=== PATIENT | male | born 1950 | race Caucasian/White ===

== ENCOUNTER → 2016-11-02 | Outpatient (CLI) | payer BC ==
[~2016-11-02] MED LIST: ALBINS/ INH; APIX1TAB3 PO; ASPI81TA28 PO; ATOR-24 PO; ATRINS NEB; CEPH500C PO; CLOP1TAB15 PO; DILT-115 PO; FAMO20TA11 PO; FOLI1TAB7 PO; FRS/40 PO; HYDR-5688 PO; IPRA0.03; KCLI20/100 PO; LEVA45AE PO; LISI-729 PO; LNX125 PO; METO50TA16 PO; NICO21DI31 TOP; RXC5 PO; SPRIN/30 INH
[2016-11-02 17:46] LABS: BLOOD UREA NITROGEN 17 mg/dl (7-18); BUN/CREATININE RATIO 12.7 (10-20); CALCIUM 9.2 mg/dl (8.5-10.1); CARBON DIOXIDE 29 mmol/L (21-32); CHLORIDE 104 mmol/L (98-107); GLUCOSE 96 mg/dl (70-99); POTASSIUM 4.3 mmol/L (3.5-5.1); SODIUM 138 mmol/L (136-145)
[2016-11-02 17:52] LABS: INR 1.1 (0.9-1.1); PARTIAL THROMBOPLASTIN RATIO 1.1; PROTHROMBIN TIME (PATIENT) 11.9 SECONDS (9.0-12.0)
[2016-11-02 17:53] LABS: HEMATOCRIT 45.5 % (42-52); MEAN CELL VOLUME 92.5 fL (80-100); MEAN CORPUSCULAR HEMOGLOBIN 29.9 pg (25-34); MEAN CORPUSCULAR HGB CONC 32.3 g/dl (32-36); MEAN PLATELET VOLUME 10.6 fL (7.4-10.4); PLATELET COUNT 361 K/uL (130-400); RED BLOOD COUNT 4.92 M/uL (4.7-6.1); WHITE BLOOD COUNT 7.27 K/uL (4.8-10.8)
== END | disposition home or self-care (01) ==
LOC: C.LABPBG 12:30
PROVIDERS: ATTEND Internal Medicine Clinical Cardiac Electrophysiology
DX: Z01.818 Encounter for other preprocedural examination (principal)

== ENCOUNTER 2016-11-19 12:19 | Emergency (ER) | payer BC ==
[~2016-11-19] VITALS: Ht 185.4 cm; Wt 86.8 kg
[2016-11-19 12:22] VITALS: TEMP 36.7; Ht 185.4 cm; Wt 86.8 kg
[2016-11-19] MEDS ORDERED: HYDROCODONE/ACETAMOPHEN 5/325MG TAB PO STA (13:26)
[2016-11-19] MEDS ORDERED: CEPH500C PO (13:34)
[2016-11-19] MEDS ORDERED: CLOP1TAB15 PO (13:34)
[2016-11-19] MEDS ORDERED: FRS/40 PO (13:34)
[2016-11-19] MEDS ORDERED: LEVA45AE PO (13:34)
[2016-11-19] MEDS ORDERED: KCLI20/100 PO (13:34)
[2016-11-19] MEDS ORDERED: ASPI81TA28 PO (13:34)
[2016-11-19] MEDS ORDERED: DILT-115 PO (13:34)
[2016-11-19] MEDS ORDERED: ALBINS/ INH (13:34)
[2016-11-19] MEDS ORDERED: ATOR-24 PO (13:34)
[2016-11-19] MEDS ORDERED: LISI-729 PO (13:34)
[2016-11-19] MEDS ORDERED: FAMO20TA11 PO (13:34)
[2016-11-19] MEDS ORDERED: HYDR-5688 PO (13:34)
[2016-11-19] MEDS ORDERED: LNX125 PO (13:34)
[2016-11-19] MEDS ORDERED: ATRINS NEB (13:34)
[2016-11-19] MEDS ORDERED: IPRA0.03 (13:34)
[2016-11-19] MEDS ORDERED: SPRIN/30 INH (13:34)
[2016-11-19] MEDS ORDERED: NICO21DI31 TOP (13:34)
[2016-11-19] MEDS ORDERED: METO50TA16 PO (13:34)
[2016-11-19] MEDS ORDERED: FOLI1TAB7 PO (13:34)
[2016-11-19] MEDS ORDERED: APIX1TAB3 PO (13:34)
--- NOTE | 2016-11-19 13:36 | EMERGENCY ROOM VISIT NOTE ---
History First contact with patient: 12:28 Chief Complaint: FINGER PAIN Stated Complaint: 2 BROKEN FINGERS W/STITCHES, BLEEDING History of Present Illness The patient is a 66 year old male who presents to the Emergency Room with complaints of a laceration which needs the dressing changed. The patient states that he sustained a laceration to his left third and fourth digits 2 days ago. He was seen at [place] emergency department and had sutures placed. There were fractures of the third and fourth fingers. He has been wearing a brace and has been to [place] twice for dressing changes because the dressing has become saturated with blood. He is supposed to see the fracture clinic this week for follow-up. He reports he is scheduled to have a defibrillator placed in [address] Garza and is unsure if he will be able to because of this injury. He takes Eliquis. He denies any dizziness or lightheadedness. Review of Systems A complete 10 point review of systems was reviewed with the patient with pertinent positives and negatives as per history of present illness. All else were negative. Social History Smoking Status: Never Smoker Current/Historical Medications Scheduled Apixaban (Eliquis), 5 MG PO BID Aspirin (Aspirin Ec), 81 MG PO DAILY Atorvastatin (Lipitor), 40 MG PO HS Cephalexin Monohydrate (Keflex), 500 MG PO QID Clopidogrel (Plavix), 75 MG PO DAILY Digoxin (Digoxin), 0.125 MCG PO DAILY Diltiazem Hcl Ext Rel (Tiazac), 240 MG PO DAILY Famotidine (Pepcid), 20 MG PO HS Folic Acid (Folvite), 1 MG PO DAILY Furosemide (Lasix), 40 MG PO DAILY Ipratropium [place] (Nasal) (Ipratropium [place]), 2 SPRAYS NA TID Lisinopril (Zestril), 2.5 MG PO DAILY Metoprolol Tartrate (Lopressor) (Lopressor), 25 MG PO BID Nicotine (Ra Nicotine), 1 PATCH TOP DAILY Potassium Chloride (Potassium Chloride), 15 ML PO BID Tiotropium [place] (Spiriva Handihaler), 1 CAP INH DAILY Scheduled PRN Albuterol Sulf (Proventil 0.083% 2.5MG/3ML), 2.5 MG INH QID PRN for Wheezing Hydrocodone/Acetaminophen 5MG/325MG ([place] 5MG/325MG), 1 TABLET PO Q6 PRN for Pain Ipratropium [place] (Ipratropium [place]), 1 VIAL NEB QID PRN for Wheezing Levalbuterol Tartrate (Levalbuterol Tartrate Hfa), 1 PUFF PO Q6 PRN for Wheezing Physical Exam Vital Signs Date Time Temp Pulse Resp B/P (MAP) Pulse Ox O2 Delivery O2 Flow Rate FiO2 11/19/16 13:43 105 128/96 94 11/19/16 12:22 36.7 77 20 110/56 95 Room Air Physical Exam VITALS: Vitals are noted on the nurse's note and reviewed by myself. Vital signs stable. GENERAL: This is a 66-year-old male, in no acute distress, nondiaphoretic, well- developed well-nourished. HEART: Regular rate and rhythm without murmurs gallops or rubs. LUNGS: Clear to auscultation bilaterally without wheezes, rales or rhonchi. EXTREMITIES: There are sutured lacerations to the left third and fourth digits with some devascularized tissue and a small amount of oozing blood from the left third digit. There is no evidence of infection. Full range of motion of the hand and all fingers. NEURO: Patient was alert and oriented to person place and time. Normal sensation to light and sharp touch. Medical Decision & Procedures Medications Administered Medications (Trade) Dose Ordered Sig/Ashlyn Route Start Time Stop Time Status Last Admin Dose Admin Acetaminophen/ Hydrocodone Bitart ([place] 5/325 Tab) 1 tab NOW STAT PO 11/19/16 13:26 11/19/16 13:27 DC 11/19/16 13:32 1 TAB Medical Decision The patient was evaluated as above. There is some oozing blood from the wound. There is no evidence of infection. The lacerations were redressed using quick clot gauze. The splint was replaced. Bleeding was controlled. The patient was encouraged to follow-up as scheduled. He was also given Dr. Lizarraga's information for follow-up if he desires. The patient verbalized understanding of my assessment and treatment plan and was discharged home in good condition. Medication Reconcilliation Current Medication List: was personally reviewed by me Blood Pressure Screening Patient's blood pressure: Normal blood pressure Impression Primary Impression: Encounter for wound re-check Departure Information Dispostion Home / Self-Care Condition GOOD Referrals Tevin Dobbs M.D. (PCP) Satya Lizarraga MD Patient Instructions [facility] Additional Instructions Keep the dressing in place for 48 hours or remove if it becomes saturated with blood. Follow-up with Dr. Lizarraga next week. Call for appointment. Call your senior environmental scientist to see if they would like to proceed with the defibrillator placement. Return to the emergency department with any new/concerning symptoms.
[2016-11-19 13:43] VITALS: BP 128/96; PULSE 105; O2SAT 94
[2016-11-22] MEDS ORDERED: RXC5 PO (07:46)
== END 2016-11-19 13:45 | disposition home or self-care (01) ==
LOC: C.EDB 12:20 → C.EDD 13:45
DX: S61.213D Laceration without foreign body of left middle finger without damage to nail, subsequent encounter (principal); S61.215D Laceration without foreign body of left ring finger without damage to nail, subsequent encounter; Z79.02 Long term (current) use of antithrombotics/antiplatelets; Z79.82 Long term (current) use of aspirin; Z79.899 Other long term (current) drug therapy; X58.XXXD Exposure to other specified factors, subsequent encounter

== ENCOUNTER 2016-11-21 11:21 | Observation (INO) | payer BC ==
[~2016-11-21] VITALS: Ht 185.4 cm; Wt 84.2 kg
[~2016-11-21 11:21] MED LIST changes: -RXC5 PO
[2016-11-21 12:19] VITALS: BP 128/95; PULSE 87; TEMP 37.1; O2SAT 95; BMI 25.0
[2016-11-21] MEDS ORDERED: CEFAZOLIN IV 2,000 MG/60 ML D5W IV ONE (12:56)
--- NOTE | 2016-11-21 13:28 | Procedure Note ---
Pre-Mod Sedation Assessment General Date of Moderate Sedation: Nov 21, 2016. Vital Signs: Vital Signs Past 12 Hours Date Time Temp Pulse Resp B/P (MAP) Pulse Ox O2 Delivery O2 Flow Rate FiO2 11/21/16 12:19 37.1 87 18 128/95 (106) 95 Room Air Review Airway Class: III Pre-Sedation Airway Assessment Oral Cavity: WNL Able to Visualize Vocal Cords: No Short Thick Neck: No Hx of Sleep Apnea: Yes Smoking Status: Former Smoker Mallampati Classification: Class III ASA Classification: Class III Procedure Planning Contraindications-for Mod Sed: None Yes Notes The planned sedation has been discussed with the patient and consent obtained. I have identified the patient, determined the appropriateness of sedation and have assessed the patient immediately prior to the procedure. All medicine(s) and interventions are by my order.
--- NOTE | 2016-11-21 13:28 | History & Physical Bridge Note ---
H&P Re-Evaluation Bridge Note: I have examined the patient, reviewed the History & Physical and in the interval since the performance of the History & Physical I have noted the following changes of clinical significance: Patient suffered a fracture and laceration to the left 4th and 5th digits 4 days ago. Mild discomfort at that site. Right sided chest pain has resolved. No changes noted
[2016-11-21] MEDS ORDERED: BUPIVACAINE 0.5 % 5 MG/1 ML MPF 30ML VIAL ONE (13:50)
[2016-11-21] MEDS ORDERED: MIDAZOLAM HCL 5 MG/ML 1 ML VIAL ONE (13:50)
[2016-11-21] MEDS ORDERED: BACITRACIN OINT 0.9 GM PKT ONE (13:50)
[2016-11-21] MEDS ORDERED: FENTANYL CITRATE INJ 50 MCG/1 ML 2 ML VIAL ONE (13:50)
[2016-11-21] MEDS ORDERED: LIDOCAINE HCL 1% 20 ML VIAL ONE (13:50)
[2016-11-21] MEDS ORDERED: BACITRACIN 50000 UNIT VIAL ONE (13:50)
[2016-11-21] MEDS ORDERED: ACETAMINOPHEN 325 MG TAB PO PRN (14:45)
[2016-11-21 14:50] VITALS: BP 120/86; PULSE 79; TEMP 36.8; O2SAT 93; Ht 185.4 cm; Wt 84.2 kg
[2016-11-21] MEDS ORDERED: MoRPHine SULFATE 2 MG/ML CARP IV PRN (15:15)
[2016-11-21] MEDS ORDERED: IV FLUIDS COMPLETED PRN (15:15)
[2016-11-21] MEDS: OXYCODONE HCL IR 5 MG TAB (IMMEDIATE RELEASE) PO PRN ×2 (16:07→20:01)
[2016-11-21 16:34] VITALS: O2SAT 91
--- NOTE | 2016-11-21 16:59 | Procedure Note ---
Procedure Note Date of Service Nov 21, 2016. Procedure Note Procedure performed: Insertion of single-chamber ICD Staff transitions rn care coordinator:Satya Garza MD Indication: Patient is a 66-year-old gentleman with a history of an ischemic cardiomyopathy and a persistently low ejection fraction. Patient has been on optimal medical therapy. He has not suffered a myocardial infarction in the past 4 days nor had any revascularization in the last 90 days. He continues to have symptoms related to congestive heart failure and has an anticipated longevity greater than 1 year. Based on these factors patient was felt to be a good candidate for implantation of an ICD as primary prevention against sudden cardiac The patient was informed of the risks benefits and alternatives to the intended procedure and he wished to proceed. He was taken to the electrophysiology suite in a fasting state. A preoperative antibiotic had been administered. The patient was monitored electrocardiographically throughout today's procedure and conscious sedation was administered per protocol. The left upper pectoral area is prepped and draped in usual sterile fashion. This area was anesthetized using subcutaneous menstruation of a xylocaine solution. An incision was made at this site and carried down to the prepectoralis fascia using sharp dissection. Electrocautery was also employed for dissection as well as for hemostasis. A device pocket was fashioned tissues above the pectoralis muscle. Subsequent to this maneuver the left axillary vein was accessed using modified Seldinger technique. Sheaths were placed over guidewires at this site use salt a passage of the pacing lead to the right ventricular apex under fluoroscopic guidance. This included a right ventricular leads. Adequate sensing and threshold parameters were obtained prior to Active fixation of the lead to the endocardial surface. The proximal portion lead were then sutured the prepectoral fascia using nonabsorbable suture. The device pocket was irrigated with antibiotic solution. The lead was then attached to the device. The device and lead were then placed in the pocket and pocket was closed in 3 layers of absorbable suture. Steri-Strips and sterile dressing were applied. The device was tested prior to the conclusion of the procedure. The patient tolerated procedure well there no immediate complications. Equipment used New pulse generator: Metal Cutter Scyron, model number: [id number] Serial number: [id number] Right ventricular lead: Metal Cutter Scyron, model number: [id number] Serial number: [id number] Measured data Right ventricular lead: R-waves measured 14.4 millivolts, pacing threshold was 0.75 volts at 0.4 milliseconds with a pacing impedance of 646 Ohms Impression: Successful implantation of single-chamber ICD Plan: Patient will be monitored on the marcano overnight, additional doses of antibiotics will be administered. A chest x-ray and reinterrogation of the device we performed in the morning. Should the patient be feeling well in all parameters be adequate, he will be considered for discharge at that time.
[2016-11-21] MEDS ORDERED: ALBUT/IPRATROP 3MG/0.5MG NEB 3 ML VIAL INH PRN (17:00)
[2016-11-21] MEDS ORDERED: LEValbuterol HFA 15GM INHALER INH SCH (17:00)
[2016-11-21] MEDS: ALBUT/IPRATROP 3MG/0.5MG NEB 3 ML VIAL INH SCH (19:02)
[2016-11-21 19:05] VITALS: PULSE 92; O2SAT 92
[2016-11-21 19:38] VITALS: BP 125/74; PULSE 95; TEMP 37; O2SAT 92
[2016-11-21] MEDS: METOPROLOL TARTRATE 25 MG TAB PO SCH (19:59)
[2016-11-21] MEDS ORDERED: FAMOTIDINE 20 MG TAB PO SCH (21:00)
[2016-11-21] MEDS ORDERED: CARVEDILOL 6.25 MG TAB PO SCH (21:00)
[2016-11-21] MEDS: CEFAZOLIN IV 2,000 MG in DEXTROSE 5% 50ML 50 ML IV SCH (21:34)
[2016-11-21 23:55] VITALS: BP 120/83; PULSE 90; TEMP 36.8; O2SAT 95
[2016-11-22] VITALS (7 sets, daily range): BP systolic 102–124; BP diastolic 70–89; PULSE 89–96; TEMP 36.7–36.8; O2SAT 94–97
[2016-11-22] MEDS: OXYCODONE HCL IR 5 MG TAB (IMMEDIATE RELEASE) PO PRN ×2 (00:08→04:42)
[2016-11-22] MEDS: CEFAZOLIN IV 2,000 MG in DEXTROSE 5% 50ML 50 ML IV SCH (06:14)
--- NOTE | 2016-11-22 07:21 | DIAGNOSTIC IMAGING REPORT ---
CHEST 2 VIEWS ROUTINE HISTORY: EXACT TIME ORDERED Evaluate for pneumothorax and lead placement COMPARISON: None. FINDINGS: The heart is normal in size. Linear densities within the base of the left lower lobe. There is also patchy density within the right medial lung base. The upper lung zones remain clear. Trace right pleural effusion. No pneumothorax. Left-sided single lead pacemaker/defibrillator. The lead appears intact. IMPRESSION: 1. Left-sided single lead pacemaker/defibrillator. No pneumothorax. 2. Patchy densities within the right medial lung base and left lung base. This may represent atelectasis or pneumonia. 3. Trace right pleural effusion. Electronically signed by: Kali Chase M.D. 11/22/2016 7:20 AM Dictated Date/Time: 11/22/2016 7:18 AM
[2016-11-22] MEDS: ALBUT/IPRATROP 3MG/0.5MG NEB 3 ML VIAL INH SCH (07:27)
[2016-11-22] MEDS ORDERED: RXC5 PO ×2 (07:46)
--- NOTE | 2016-11-22 07:49 | Discharge Instructions ---
Discharge Instructions Date of Service Nov 22, 2016. Admission Reason for Admission: CHF Discharge Discharge Diagnosis / Problem: ICD implant Discharge Goals Goal(s): Improve disease control, Therapeutic intervention Activity Recommendations Activity Limitations: as noted below Lifting Limitations: none May Resume Sexual Activity: when tolerated Driving or Machine Use: resume 1 day after discharge Keep wound dry and steri-strip intact until f/u appointment. No lifting left arm above shoulder or behind neck for 6 weeks . Instructions / Follow-Up Instructions / Follow-Up f/u in 2 days as scheduled Current Hospital Diet Patient's current hospital diet: AHA Diet (Heart Healthy) Discharge Diet Recommended Diet: AHA Diet (Heart Healthy) Procedures Procedures Performed: IMplant of Medtronic ICD Pending Studies Studies pending at discharge: no Medical Emergencies . Who to Call and When: Medical Emergencies: If at any time you feel your situation is an emergency, please call 911 immediately. . Non-Emergent Contact Non-Emergency issues call your: Registration Scheduling Specialist Call Non-Emergent contact if: you have a fever, your pain is not controlled, your pain is worsening, wound has increased redness, wound has increased pain, you have any medication questions . . "Provider Documentation" section prepared by Reggie Garza. . VTE Core Measure Inpt VTE Proph given/why not?: Treatment not indicated
[2016-11-22] MEDS: ASPIRIN 81 MG ECTAB PO SCH ×2 (08:26→08:34)
[2016-11-22] MEDS: CLOPIDOGREL BISULFATE 75 MG TAB PO SCH ×2 (08:30→09:18)
[2016-11-22] MEDS: METOPROLOL TARTRATE 25 MG TAB PO SCH (08:30)
[2016-11-22] MEDS ORDERED: ATORVASTATIN 40 MG TAB PO SCH (09:00)
[2016-11-22] MEDS ORDERED: LISINOPRIL 2.5 MG TAB PO SCH (09:00)
[2016-11-22] MEDS ORDERED: TIOTROPIUM BROMIDE 5 PUFF/90 MCG INH INH SCH (09:00)
[2016-11-22] MEDS ORDERED: FUROSEMIDE 40 MG TAB PO SCH (09:00)
[2016-11-22] MEDS ORDERED: DILTIAZEM HCL 120 MG ER CAP PO SCH (09:00)
--- NOTE | 2016-11-22 12:40 | Discharge Summary ---
Discharge Summary Admission Date: Nov 21, 2016 at 14:43 Discharge Date: Nov 22, 2016 Discharge Disposition: Home Primary Diagnosis: Ischemic cardiomyopathy Procedures: Implantation of single-chamber Medtronic ICD Discharge Instructions Last Recorded Wt (Kilograms): 84.200 Activity Recommendations: limitations as noted below Allergies: Coded Allergies: Iodinated Diagnostic Agents (Unverified Allergy, Unknown, HIVES, 11/21/16) DINIFTY DYE Home Health Services: none Additional Instructions: Keep wound dry and Steri-Strips intact until follow-up. No lifting left arm above the shoulder behind the neck for 6 weeks Special Care: Call your doctor if: * Temperature above 101 degrees * Pain not relieved by pain medicine ordered * There is increased drainage or redness from any incision * You have any unanswered questions or concerns. Avoid all tobacco products. If you need help to stop smoking, call [place]'s FREE QUITLINE at . This is a free call. Admission HPI Patient with history of ischemic cardiomyopathy who requires an ICD for prophylaxis against sudden cardiac . Hospital Course Patient underwent implantation of single-chamber Medtronic ICD on the day of admission. The following morning device interrogation was performed. This revealed normal device function. Chest x-ray did not reveal any evidence of complication. Leads were in stable position. The wound appeared intact without erythema or evidence of infection. No hematoma. Total time spent on discharge = This includes examination of the patient, discharge planning, medication reconciliation, and communication with other providers.
[2016-11-22] MEDS ORDERED: DIGOXIN 0.125 MG TAB PO SCH (16:00)
== END 2016-11-22 09:56 | disposition home or self-care (01) ==
LOC: C.ACU 11:21 → ENRESERV 14:07 → C.2T 14:43
PROVIDERS: ADMIT Internal Medicine Clinical Cardiac Electrophysiology; ATTEND Internal Medicine Clinical Cardiac Electrophysiology
DX: I25.5 Ischemic cardiomyopathy (principal); I50.9 Heart failure, unspecified; I25.10 Atherosclerotic heart disease of native coronary artery without angina pectoris; I48.91 Unspecified atrial fibrillation; J44.9 Chronic obstructive pulmonary disease, unspecified; F17.200 Nicotine dependence, unspecified, uncomplicated; Z79.82 Long term (current) use of aspirin; Z79.52 Long term (current) use of systemic steroids; Z82.3 Family history of stroke; Z83.3 Family history of diabetes mellitus